=== PATIENT | female | born 1940 | race Caucasian/White ===

== ENCOUNTER 2017-12-18 07:10 | Day surgery (SDC) | payer MEDICARE ==
[2017-12-14 15:46] VITALS: BMI 40.7
[2017-12-18] MEDS ORDERED: LIDOCAINE 1% 20 ML VIAL (10MG/ML) FOR IV START INTRADERMA ONE (07:59)
[2017-12-18] MEDS ORDERED: LACTATED RINGERS 1,000 ML IV ONE (07:59)
[2017-12-18 08:00] LABS: Glucose,Whole Blood 119 mg/dL (75-99)
[2017-12-18 08:03] VITALS: RESP 16; TEMP 98.2
[2017-12-18] MEDS ORDERED: PROPOFOL 10 MG/ML 20 ML VIAL IV ONE (08:40)
--- NOTE | 2017-12-18 09:08 | P.PCN ---
Date of Procedure: 12/18/17 Procedure(s) Performed: Procedure: Esophagogastroduodenoscopy and biopsy. Preoperative diagnosis: Chronic reflux symptoms and excessive belching. Postoperative diagnosis: 1. Small sliding hiatal hernia with no obvious esophagitis or complicated reflux disease. 2. Mild antral gastritis. 3. Multiple biopsies obtained from the duodenum, antrum and esophagus. Preparation and sedation: Was provided by anesthesia. Brief clinical history: The patient is a 77-year-old female who has been having issues with reflux for several years and has taken PPIs for more than 10 years. She has been having constant belching and stomach distress that made her concerned especially that her who from esophageal cancer had similar symptoms. She denied any bleeding or other alarm symptoms. No prior EGD. Procedure: With the patient on her left lateral decubitus position and after informed consent and adequate sedation, I passed the Olympus-GIF 160 video upper endoscope through the cricopharyngeus down the esophagus. GE junction was around 40 cm from the incisors and there was a small sliding hiatal hernia but no obvious esophagitis or complicated reflux disease. There were no tumors or obstruction. The endoscope was then passed into the stomach which was insufflated with air and inspected in detail including the retroflex view in the cardia. There was some mottling and erythema in the antrum but no ulcers or erosions. Pyloric channel, duodenal bulb, post bulbar area and descending duodenum appeared within normal limits. Because of her symptoms, I obtained biopsies from the duodenum, antrum and esophagus then the endoscope was withdrawn. The patient tolerated the procedure well. Plan: The patient was reassured. Will await the biopsy results and make further plans based on her course and biopsy results. She will follow-up in the office as planned and we would keep you updated on her progress.
[2017-12-18 09:26] VITALS: BP 127/81; PULSE 74
== END 2017-12-18 09:49 | disposition home or self-care (01) ==
LOC: ORWHC2ENDO 07:10
DX: K21.0 Gastro-esophageal reflux disease with esophagitis (principal); K29.50 Unspecified chronic gastritis without bleeding; K44.9 Diaphragmatic hernia without obstruction or gangrene; E11.9 Type 2 diabetes mellitus without complications; I10 Essential (primary) hypertension; E78.5 Hyperlipidemia, unspecified; M19.90 Unspecified osteoarthritis, unspecified site; I25.10 Atherosclerotic heart disease of native coronary artery without angina pectoris; G47.33 Obstructive sleep apnea (adult) (pediatric); Z99.89 Dependence on other enabling machines and devices; Z79.84 Long term (current) use of oral hypoglycemic drugs; Z79.899 Other long term (current) drug therapy; Z91.048 Other nonmedicinal substance allergy status
CPT/HCPCS: 88305; 43239; J2704